=== PATIENT | female | born 1990 | race Caucasian/White ===

== ENCOUNTER 2016-08-29 12:03 | Day surgery (SDC) | payer BC ==
[2016-08-24 15:53] LABS: BASOPHILS 0.1 %; BASOPHILS ABSOLUTE 0.01 10/3/uL (0.0-0.16); EOSINOPHILS 2.2 %; EOSINOPHILS ABSOLUTE 0.17 10/3/uL (0.0-0.53); HEMATOCRIT 36.9 % (36.0-48.0); HEMOGLOBIN 12.5 g/dL (12.0-16.0); IMMATURE GRANULOCYTES 0.1 %; IMMATURE GRANULOCYTES ABSOLUTE 0.01 10/3/uL (0.0-0.11); LYMPHOCYTES 26.9 %; LYMPHOCYTES ABSOLUTE 2.09 10/3/uL (0.67-4.30); MEAN CORPUS HGB CONC 33.9 g/dL (32.0-36.0); MEAN CORPUSCULAR VOLUME 94.4 fL (80-100); MONOCYTES ABSOLUTE 0.39 10/3/uL (0.21-1.20); NEUTROPHILS 65.7 %; NEUTROPHILS ABSOLUTE 5.11 10/3/uL (2.02-8.40); PLATELET COUNT 340 10/3/uL (150-400); RBC DISTRIBUTION WIDTH 12.5 % (12.0-16.0); RED CELL COUNT 3.91 10/6/uL (4.0-5.6); WHITE BLOOD CELLS 7.8 10/3/uL (4.5-10.5)
[2016-08-24 15:54] LABS: MANUAL DIFF NO %
[2016-08-24 15:57] LABS: INTERNATIONAL NORMAL RATI 1.1 UNITS (-); PARTIAL THROMBO TIME 30.7 SEC (22.5-37.2); PROTIME (NOT ORD) 14.2 SEC (12.0-14.5)
[2016-08-24 16:09] LABS: A/G RATIO 0.9 (0.7-1.9); ALBUMIN 3.6 G/DL (3.5-5.0); ALKALINE PHOSPHATASE 65 U/L (45-117); BUN (BLOOD UREA NITROGEN) 9 MG/DL (6-23); CALCIUM, SERUM 8.6 MG/DL (8.5-10.4); CHLORIDE, SERUM 106 MMOL/L (96-112); CO2 (CARBON DIOXIDE) 28 MMOL/L (24-34); CREATININE 0.69 MG/DL (0.55-1.02); GFR AFRICAN AMERICAN 140 ML/MIN (>=60); GFR NON AFRICAN AMERICAN 121 ML/MIN (>=60); GLOBULIN 3.8 G/DL (2.5-4.1); GLUCOSE, SERUM 83 MG/DL (60-99); POTASSIUM, SERUM 3.9 MMOL/L (3.5-5.3); SGOT(AST) 9 U/L (5-40); SGPT(ALT) 17 U/L (5-65); SODIUM, SERUM 143 MMOL/L (135-148); TOTAL BILIRUBIN 0.8 MG/DL (0-1.2); TOTAL PROTEIN 7.4 G/DL (6.0-8.5)
--- NOTE | ~2016-08-29 | OP ---
Record Of Operation [facility] [address] [place]. [address] NAME: BUNNY FUENZ : [birth year] STATUS : [facility]#: [id number] AGE: 25 ADM/REG DATE : 08/29/16 MR#: [id number] REPORT SERV DATE: 08/29/16 DICTATED BY: JOHN JUÁREZ JR. DATE: 08/29/16 REPORT STATUS : Draft TRANSCRIBED BY: REINALDO DATE: 08/29/16 DATE OF PROCEDURE: 08/29/2016 SURGEON: John Juárez M.D. MEDIA AID: Meme Martin. PROCEDURE: Excision of right breast mass. PREOPERATIVE DIAGNOSIS: Right breast mass. POSTOPERATIVE DIAGNOSIS: Right breast mass. ANESTHESIA: General. INDICATIONS: This patient had presented with enlarging painful mass on the right breast. A directed core biopsy showed a fibroadenoma. Because of persistent discomfort, the patient requested excision and this was, therefore, indicated for definitive treatment. FINDINGS: There was a lobulated mass present in the 12 o'clock position surrounded by very dense fibrous tissue. It was excised completely with final diagnosis deferred to permanent section. DESCRIPTION OF PROCEDURE: With adequate general anesthesia, the patient was placed in supine position. The right breast was prepped and draped sterilely. A superior circumareolar incision was outlined. An incision was made and deepened into the breast tissue. A flap was raised superiorly to encompass the area of the mass. It was then excised sharply from the surrounding tissues. It was oriented with appropriate sutures and submitted to pathology for examination. Bleeding was controlled with electrocautery. The wound was irrigated and hemostasis was assured. It was carefully palpated and no other significant findings were encountered. The wound was then closed with subcutaneous 3-0 Vicryl and subcuticular Monocryl. The wound was dressed with 0.5% Marcaine. JEANNE/REINALDO John Juárez Jr., M.D. / [id number] CC: Amira Steiner Jr., M.D.
[~2016-08-29 12:03] MED LIST: ADVIL PO; NORCO1 TA1 PO; VITAMIN E; X5 PO
== END 2016-08-29 18:15 | disposition home or self-care (01) ==
LOC: SDC 12:03
PROVIDERS: Specialist
PROC: 0HBT0ZZ Excision of Right Breast, Open Approach (ICD-10-PCS; principal; 2016-08-29 12:15)
DX: D24.1 Benign neoplasm of right breast (principal); G47.33 Obstructive sleep apnea (adult) (pediatric); F41.9 Anxiety disorder, unspecified; Z88.0 Allergy status to penicillin; Z79.899 Other long term (current) drug therapy; Z79.1 Long term (current) use of non-steroidal anti-inflammatories (NSAID); Z88.6 Allergy status to analgesic agent; Z85.820 Personal history of malignant melanoma of skin
CPT/HCPCS: 71020; 80053; 84703; 85025; 85610; 85730; 88307; 93005; J0583; J0690; J1885; J2250; J2270; J2405; J3010